=== PATIENT | male | born 1975 | race Caucasian/White ===

== ENCOUNTER 2017-06-23 21:35 | Emergency (ER) | payer OTHER ==
[~2017-06-23] VITALS: Ht 175.3 cm; Wt 87.9 kg
[2017-06-23 21:46] VITALS: TEMP 36.7; Ht 175.3 cm; Wt 87.9 kg
[2017-06-23] MEDS ORDERED: ACETAMINOPHEN 500 MG TAB PO STA (21:56)
[2017-06-23 22:22] VITALS: O2SAT 99
[2017-06-23] MEDS ORDERED: LEVE500T13 PO (22:35)
[2017-06-23] MEDS ORDERED: PARO30TA3 PO (22:36)
[2017-06-23] MEDS ORDERED: SPIR25TA PO (22:38)
[2017-06-23] MEDS ORDERED: [UNRECOGNIZED DRUG - CODE] IM (22:41)
[2017-06-23 22:44] LABS: BASO % 0.5 %; BASO ABS # 0.06 K/uL (0-0.2); EOS % 3.4 %; EOS ABS # 0.45 K/uL (0-0.5); HEMATOCRIT 38.5 % (42-52); HEMOGLOBIN 12.9 g/dL (14.0-18.0); IG# 0.04 K/uL (0.00-0.02); LYMPH % 25.9 %; LYMPH ABS # 3.42 K/uL (1.2-3.4); MEAN CELL VOLUME 94.6 fL (80-100); MEAN CORPUSCULAR HEMOGLOBIN 31.7 pg (25-34); MEAN CORPUSCULAR HGB CONC 33.5 g/dl (32-36); MEAN PLATELET VOLUME 10.8 fL (7.4-10.4); MONO % 8.3 %; NEUT % 61.6 %; NEUT ABS # 8.12 K/uL (1.4-6.5); PLATELET COUNT 200 K/uL (130-400); RED CELL DISTRIBUTION WIDTH CV 13.2 % (11.5-14.5); RED CELL DISTRIBUTION WIDTH SD 45.4 fL (36.4-46.3); WHITE BLOOD COUNT 13.19 K/uL (4.8-10.8)
--- NOTE | 2017-06-23 22:46 | DIAGNOSTIC IMAGING REPORT ---
HEAD WITHOUT CONTRAST (CT) CLINICAL HISTORY: 42 years-old Male presenting with head / facial injury. TECHNIQUE: Multidetector CT imaging of the head was performed without the use of intravenous contrast. IV contrast: None. A dose lowering technique was used consistent with the principles of ALARA (as low as reasonably achievable). COMPARISON: None. CT DOSE (mGy.cm): The estimated cumulative dose is 858.[address] face. FINDINGS: Linux Architect topogram: Unremarkable. Ventricles and sulci normal in size. Brain parenchyma normal in appearance with preserved coelho-white differentiation. No mass effect or midline shift. No hemorrhage or acute territorial infarct. No extra-axial fluid collection. Paranasal sinuses and mastoid air cells clear. Calvarium intact. Soft tissue swelling and subgaleal hematoma over the left frontal region. IMPRESSION: 1. No acute intracranial abnormality. 2. Left frontal subcutaneous contusion and subjacent subgaleal hematoma. No acute osseous injury. Electronically signed by: Tc Singh M.D. 06/23/2017 10:44 PM Dictated Date/Time: 06/23/2017 10:42 PM
--- NOTE | 2017-06-23 22:48 | DIAGNOSTIC IMAGING REPORT ---
FACIAL BONES-MXILLOFAC WITHOUT CLINICAL HISTORY: 42 years-old Male presenting with head / facial injury. TECHNIQUE: Multidetector CT of the face was performed without the use of intravenous contrast. IV contrast: None. A dose lowering technique was used consistent with the principles of ALARA (as low as reasonably achievable). COMPARISON: None. CT DOSE (mGy.cm): The estimated cumulative dose is 858.08 mGy.cm. FINDINGS: Crime Scene Technician topogram: Unremarkable. Mild polypoid mucosal thickening in the maxillary sinuses. Paranasal sinuses and mastoid air cells otherwise clear. No acute osseous injury. Orbits intact. Significant soft tissue swelling along the left frontal region. Temporomandibular joints intact. No mandibular fracture. Upper cervical spine normal. Bony nasal septum midline. IMPRESSION: No acute osseous injury of the face. Electronically signed by: Tc Singh M.D. 06/23/2017 10:46 PM Dictated Date/Time: 06/23/2017 10:44 PM
[2017-06-23 23:05] LABS: BLOOD UREA NITROGEN 15 mg/dl (7-18); GLUCOSE 90 mg/dl (70-99)
[2017-06-23 23:06] LABS: ALBUMIN 3.5 gm/dl (3.4-5.0); ALT/SGPT 19 U/L (12-78); CARBON DIOXIDE 29 mmol/L (21-32); POTASSIUM 3.9 mmol/L (3.5-5.1); SODIUM 137 mmol/L (136-145)
[2017-06-23 23:08] LABS: ALKALINE PHOSPHATASE 34 U/L (45-117); AST/SGOT 16 U/L (15-37); PHOSPHORUS 3.5 mg/dl (2.5-4.9); TOTAL PROTEIN 6.7 gm/dl (6.4-8.2)
[2017-06-23 23:37] VITALS: BP 104/63; PULSE 73; O2SAT 94
--- NOTE | 2017-06-24 04:54 | EMERGENCY ROOM VISIT NOTE ---
History First contact with patient: 21:44 Chief Complaint: HEAD INJURY (MINOR) Stated Complaint: BUMP ON HEAD- SWELLING TO EYE AND FOREHEAD Nursing Triage Summary: krystle coronado had a seizure this am c/o facial pain and swelling. [place] at this time. History of Present Illness The patient is a 42 year old male who presents to the Emergency Room with complaints of left orbital contusion and headache since this morning after having a seizure. Patient has a history of seizures and is on Keppra. He has not missed a dose. He is a prisoner and was evaluated tonight by the on-call [place] [facility] doctor is advised to go the ER for rule out facial fracture. Patient had a seizure this morning greater than 12 hours ago. Patient denies fall, trauma, chest pain, dyspnea, neck pain, dental pain, visual problems, loss of vision, cold symptoms, numbness, tingling, localized weakness, abdominal pain, vomiting, diarrhea or any other medical complaints. Patient was a mild headache , 3 out of 10. Nothing makes it better or worse to the left temporal region. No history of intracranial bleeds in the past. No prior facial fractures. Review of Systems See HPI for pertinent positives & negatives. A total of 10 systems reviewed and were otherwise negative. Past Medical/Surgical History Seizures, transgender Social History Smoking Status: Current Every Day Smoker Drug Use: none Occupation Status: other (prisoner) Current/Historical Medications Scheduled Estradiol Valerate (Delestrogen), 25 MG IM 2XMONTHLY Levetiracetam (Keppra), 500 MG PO BID Paroxetine HCl (Paroxetine), 30 MG PO DAILY Spironolactone (Aldactone), 125 MG PO HS Physical Exam Vital Signs Date Time Temp Pulse Resp B/P (MAP) Pulse Ox O2 Delivery O2 Flow Rate FiO2 06/23/17 23:37 73 18 104/63 94 Room Air 06/23/17 22:26 60 06/23/17 22:22 99 Room Air 06/23/17 22:21 53 18 115/53 99 Room Air 06/23/17 21:46 36.7 66 20 119/75 95 Room Air Physical Exam PHYSICAL EXAM: VITALS: Vitals are noted on the nurse's note and reviewed by myself. Vital signs stable. GENERAL: White male in shackles, in no acute distress, nondiaphoretic, well- developed well-nourished. SKIN: Left orbital contusion The rest of the skin was without obvious lacerations or abrasions. Capillary reflex less than 2 seconds. HEAD: Normocephalic EARS: External auditory canals clear, tympanic membranes pearly coelho without erythema or effusion bilaterally. No hemotympanums. No thapa sign. No mastoid tenderness. EYES: Pupils equal round and reactive to light and accommodation. Conjunctivae without injection, sclerae without icterus. Extraocular movements intact. NOSE: Patent, turbinates without inflammation or discharge. No sinus tenderness. No septal hematoma or bleeding. FACE: Left orbital facial bone tenderness. Full range of motion of the jaw without tenderness. Dental exam: No loose or chipped teeth. MOUTH: Mucous membranes moist. Pharynx without erythema or exudate. Uvula midline. Airway patent. Tongue does not deviate. NECK: Supple without nuchal rigidity. Cervical spine is nontender. Full range of motion of the neck without tenderness. No JVD. HEART: Regular rate and rhythm without murmurs gallops or rubs. LUNGS: Clear to auscultation bilaterally without wheezes, rales or rhonchi. No dullness to percussion. No retractions or accessory muscle use. No chest wall tenderness. ABDOMEN: Positive bowel sounds x 4. Normal tympanic percussion. Soft, nontender, without masses or organomegaly. No guarding or rebound tenderness. MUSCULOSKELETAL: No tenderness of the thoracic or lumbar spine. No tenderness with pelvic rocking. Full range of motion without tenderness to palpation in all extremities. Strength 5/5 throughout. NEURO: Patient was alert and oriented to person place and time. Normal Mini- Mental status exam. Normal sensation to light and sharp touch. Cerebellar function intact. No focal neurological deficits. Medical Decision & Procedures Laboratory Results 06/23/17 22:27 Red Blood Count 4.07, Mean Corpuscular Volume 94.6, Mean Corpuscular Hemoglobin 31.7, Mean Corpuscular Hemoglobin Concent 33.5, Mean Platelet Volume 10.8, Neutrophils (%) (Auto) 61.6, Lymphocytes (%) (Auto) 25.9, Monocytes (%) (Auto) 8.3, Eosinophils (%) (Auto) 3.4, Basophils (%) (Auto) 0.5, Neutrophils # (Auto) 8.12, Lymphocytes # (Auto) 3.42, Monocytes # (Auto) 1.10, Eosinophils # (Auto) 0.45, Basophils # (Auto) 0.06 06/23/17 22:27 Test 06/23/17 22:27 White Blood Count 13.19 K/uL (4.8-10.8) Red Blood Count 4.07 M/uL (4.7-6.1) Hemoglobin 12.9 g/dL (14.0-18.0) Hematocrit 38.5 % (42-52) Mean Corpuscular Volume 94.6 fL (80-100) Mean Corpuscular Hemoglobin 31.7 pg (25-34) Mean Corpuscular Hemoglobin Concent 33.5 g/dl (32-36) Platelet Count 200 K/uL (130-400) Mean Platelet Volume 10.8 fL (7.4-10.4) Neutrophils (%) (Auto) 61.6 % Lymphocytes (%) (Auto) 25.9 % Monocytes (%) (Auto) 8.3 % Eosinophils (%) (Auto) 3.4 % Basophils (%) (Auto) 0.5 % Neutrophils # (Auto) 8.12 K/uL (1.4-6.5) Lymphocytes # (Auto) 3.42 K/uL (1.2-3.4) Monocytes # (Auto) 1.10 K/uL (0.11-0.59) Eosinophils # (Auto) 0.45 K/uL (0-0.5) Basophils # (Auto) 0.06 K/uL (0-0.2) RDW Standard Deviation 45.4 fL (36.4-46.3) RDW Coefficient of Variation 13.2 % (11.5-14.5) Immature Granulocyte % (Auto) 0.3 % Immature Granulocyte # (Auto) 0.04 K/uL (0.00-0.02) Anion Gap 4.0 mmol/L (3-11) Est Creatinine Clear Calc Drug Dose 105.6 ml/min Estimated GFR () 107.1 Estimated GFR (Non- 92.4 BUN/Creatinine Ratio 14.9 (10-20) Calcium Level 8.0 mg/dl (8.5-10.1) Phosphorus Level 3.5 mg/dl (2.5-4.9) Magnesium Level 2.2 mg/dl (1.8-2.4) Total Bilirubin 0.2 mg/dl (0.2-1) Direct Bilirubin < 0.1 mg/dl (0-0.2) Aspartate Amino Transf (AST/SGOT) 16 U/L (15-37) Alanine Aminotransferase (ALT/SGPT) 19 U/L (12-78) Alkaline Phosphatase 34 U/L (45-117) Total Protein 6.7 gm/dl (6.4-8.2) Albumin 3.5 gm/dl (3.4-5.0) Medications Administered Medications (Trade) Dose Ordered Sig/Sharon Route Start Time Stop Time Status Last Admin Dose Admin Acetaminophen (Tylenol Tab) 1,000 mg NOW STAT PO 06/23/17 21:56 06/23/17 21:58 DC 06/23/17 22:20 1,000 MG ED Course Prior records/ancillary studies reviewed. Patient placed in seizure precautions immediately upon arrival. Nursing notes reviewed. Additional history obtained from correction officers The patient's history was concerning for a possible seizure. Differential diagnosis: Etiologies such as infection, hypoglycemia, electrolyte abnormalities, cardiac sources, intracerebral event, trauma, toxicologic, neurologic, as well as others were entertained. Physical examination: As above. No signs of trauma. ER treatment provided: Tylenol On reassessment the patient felt better. Diagnostics interpretation by me: The labs revealed mild anemia. Keppra level pending Imaging studies: ~ rep ct add3] HEAD WITHOUT CONTRAST (CT) CLINICAL HISTORY: 42 years-old Male presenting with head / facial injury. TECHNIQUE: Multidetector CT imaging of the head was performed without the use of intravenous contrast. IV contrast: None. A dose lowering technique was used consistent with the principles of ALARA (as low as reasonably achievable). COMPARISON: None. CT DOSE (mGy.cm): The estimated cumulative dose is 858.[address] face. FINDINGS: Easter Bunny topogram: Unremarkable. Ventricles and sulci normal in size. Brain parenchyma normal in appearance with preserved coelho-white differentiation. No mass effect or midline shift. No hemorrhage or acute territorial infarct. No extra-axial fluid collection. Paranasal sinuses and mastoid air cells clear. Calvarium intact. Soft tissue swelling and subgaleal hematoma over the left frontal region. IMPRESSION: 1. No acute intracranial abnormality. 2. Left frontal subcutaneous contusion and subjacent subgaleal hematoma. No acute osseous injury. FACIAL BONES-MXILLOFAC WITHOUT CLINICAL HISTORY: 42 years-old Male presenting with head / facial injury. TECHNIQUE: Multidetector CT of the face was performed without the use of intravenous contrast. IV contrast: None. A dose lowering technique was used consistent with the principles of ALARA (as low as reasonably achievable). COMPARISON: None. CT DOSE (mGy.cm): The estimated cumulative dose is 858.08 mGy.cm. FINDINGS: Easter Bunny topogram: Unremarkable. Mild polypoid mucosal thickening in the maxillary sinuses. Paranasal sinuses and mastoid air cells otherwise clear. No acute osseous injury. Orbits intact. Significant soft tissue swelling along the left frontal region. Temporomandibular joints intact. No mandibular fracture. Upper cervical spine normal. Bony nasal septum midline. IMPRESSION: No acute osseous injury of the face. Electronically signed by: Tc Singh M.D. The patient has a history of seizures and experienced another episode. Keppra level is pending. Unremarkable imaging as above. He was advised to follow-up the [place] [facility] doctor for blood test results. He is best to continue his medications as directed and he was given a head injury signs and symptoms. He was advised to follow-up with the [place] [facility] doctor in a few days or here in the ER sooner for headache, fevers, confusion, worsening signs or symptoms or as needed. Patient was neurovascularly and neurologically intact. He is well- appearing. No deficits on exam No concerning physical findings or historical points were noted. Advanced diagnostics were deemed unnecessary. By the evaluation outlined above emergent etiologies such as infection, hypoglycemia, electrolyte abnormalities, cardiac sources, intracerebral event, toxicologic, neurologic,as well as others were deemed relatively unlikely. The pt informed about the findings as listed above. All questions were answered and pleased with the treatment. Return instructions were outlined and the patient was discharged in stable condition. Referral: The patient was referred back to their [place] [facility] doctor for follow-up in 2 to 3 days for a recheck of the current condition. Case reviewed with my attending Medical Decision As above Head Trauma GCS Score: 15 Medication Reconcilliation Current Medication List: was personally reviewed by me Blood Pressure Screening Patient's blood pressure: Normal blood pressure Impression Primary Impression: Head injury Additional Impressions: Seizure Facial contusion Departure Information Dispostion Home / Self-Care Condition GOOD Forms HOME CARE DOCUMENTATION FORM, IMPORTANT VISIT INFORMATION Patient Instructions My [facility], ED Contusion Face, ED Head Injury Closed Additional Instructions Read head injury handout and return for any symptoms. Tylenol 1000 mg as needed for pain (Maximum 3000 mg Tylenol in 24 hr period). Avoid alcohol and contact sports/activities for one week and follow up with family doctor prior to returning to these activities if still symptomatic. Ice and elevate head. Follow-up with [place] [facility] doctor in 2 to 3 days for your Keppra level results and for reevaluation. Return to ER sooner for headache, fevers, confusion, seizure, worsening signs or symptoms or as needed. Problem Qualifiers Primary Impression: Head injury Encounter type: initial encounter Qualified Codes: S09.90XA - Unspecified injury of head, initial encounter
== END 2017-06-23 23:38 | disposition home or self-care (01) ==
LOC: C.EDB 21:39
DX: S09.90XA Unspecified injury of head, initial encounter (principal); R56.9 Unspecified convulsions; S00.83XA Contusion of other part of head, initial encounter; F17.200 Nicotine dependence, unspecified, uncomplicated; X58.XXXA Exposure to other specified factors, initial encounter